=== PATIENT | female | born 1970 | race Caucasian/White ===

== ENCOUNTER 2018-11-06 06:52 | Emergency (ER) | payer MEDICAID, OTHER ==
[~2018-11-06] VITALS: Ht 172.7 cm; Wt 95.0 kg
[~2018-11-06 06:52] MED LIST: NO HOME MEDS
[2018-11-06 06:58] VITALS: BP 118/77
[2018-11-06] MEDS ORDERED: TRAM50TA2 PO (08:17)
== END 2018-11-06 08:42 | disposition home or self-care (01) ==
LOC: ER 06:53
DX: S86.011A Strain of right Achilles tendon, initial encounter (principal); M19.90 Unspecified osteoarthritis, unspecified site; Z98.890 Other specified postprocedural states; Z79.899 Other long term (current) drug therapy; X50.1XXA Overexertion from prolonged static or awkward postures, initial encounter; Y93.89 Activity, other specified; Y92.89 Other specified places as the place of occurrence of the external cause; Y99.8 Other external cause status
CPT/HCPCS: 99284

== ENCOUNTER 2019-08-10 11:21 | Emergency (ER) | payer MEDICAID, OTHER ==
[~2019-08-10] VITALS: Ht 170.2 cm; Wt 94.0 kg
[2019-08-10] MEDS ORDERED: cyclobenzaprine 10mg tablet PO ONE (13:35)
[2019-08-10] MEDS ORDERED: HYDROcodone/acetaminophen 10/325mg tab PO ONE (13:35)
[2019-08-10] MEDS ORDERED: IBUP-1984 PO (14:38)
[2019-08-10] MEDS ORDERED: HYDR-4353 PO (14:38)
[2019-08-10 15:31] VITALS: BP 153/96
== END 2019-08-10 15:33 | disposition home or self-care (01) ==
LOC: ER 11:21
DX: M54.42 Lumbago with sciatica, left side (principal); M19.90 Unspecified osteoarthritis, unspecified site; G89.29 Other chronic pain; Z90.89 Acquired absence of other organs; Z98.890 Other specified postprocedural states; Z79.899 Other long term (current) drug therapy
CPT/HCPCS: 99284

== ENCOUNTER 2023-04-26 15:35 | Emergency (ER) | payer MEDICAID, OTHER ==
[~2023-04-26] VITALS: Ht 175.3 cm; Wt 85.0 kg
[2023-04-26 16:04] VITALS: BP 162/81; PULSE 99; RESP 19; TEMP 98.7; O2SAT 99
[2023-04-26] MEDS ORDERED: ketorolac tromethamine 15mg/ml inj. IM ONE (16:45)
[2023-04-26] MEDS ORDERED: CYCL-1 PO (16:48)
[2023-04-26] MEDS ORDERED: LIDO700A32 TOP (16:48)
[2023-04-26] MEDS ORDERED: PRED20TA PO (16:48)
[2023-04-26] MEDS: dexamethasone sod phosphate 10mg/ml inj IM STA (17:23)
[2023-04-26] MEDS: HYDROcodone/acetaminophen 5mg/325mg tablet PO ONE (17:23)
[2023-04-26] MEDS: ketorolac trometh. 30mg/ml inj. IM ONE (17:23)
[2023-04-26] MEDS: cyclobenzaprine 10mg tablet PO ONE (17:23)
== END 2023-04-26 17:50 | disposition home or self-care (01) ==
LOC: ER 15:36
DX: G89.29 Other chronic pain (principal); M54.50 Low back pain, unspecified; M19.90 Unspecified osteoarthritis, unspecified site; Z98.890 Other specified postprocedural states
CPT/HCPCS: 96372; 99284; J1100; J1885

== ENCOUNTER 2024-07-27 17:26 | Emergency (ER) | payer MEDICAID, OTHER ==
[~2024-07-27] VITALS: Ht 170.2 cm; Wt 92.7 kg
[~2024-07-27 17:26] MED LIST changes: +CYCL-1 PO; +LIDO-52 TOP
[2024-07-27 17:35] VITALS: TEMP 98.3
--- NOTE | 2024-07-27 17:42 | ELECTROCARDIOGRAPH REPORT ---
[facility] Test Date: 2024-07-27 Test Time: 17:32:12 Pat Name: DIMITRIS CELESTIN Department: EMERGENCY ROOM Room: Gender: F Concrete Finishing Machine Operator: : [id number] Requested By: ALEJANDRINA WILLIAMSON Order Number: [id number] Reading MD: Dr. Alejandrina Williamson Measurements Intervals [place] Rate: 83 P: 81 WV: 143 QRS: 60 QRSD: 84 T: 81 QT: 347 QTc: 408 Interpretive Statements Sinus rhythm Electronically Signed On 07-27-2024 19:37:[address] Alejandrina Williamson Please click the below link to view image of tracing.
[2024-07-27 18:05] LABS: BASOPHILS % (AUTO) 0.4 % (0-1); EOSINOPHILS # (AUTO) 0.4 X10'3 (0-0.9); EOSINOPHILS % (AUTO) 4.1 % (0-6); HEMATOCRIT 39.4 % (35.0-45.0); HEMOGLOBIN 13.3 g/dl (12.0-16.0); LYMPHOCYTES # (AUTO) 4.9 X10'3 (1.1-4.8); LYMPHOCYTES % (AUTO) 45.5 % (21-51); MEAN CORPUSCULAR HEMOGLOBIN 29.3 PG (27.0-31.0); MEAN CORPUSCULAR HGB CONC 33.8 g/dL (33.0-36.5); MEAN CORPUSCULAR VOLUME 86.9 FL (78-98); MEAN PLATELET VOLUME 7.5 FL (7.4-10.4); MONOCYTES # (AUTO) 0.6 X10'3 (0-0.9); NEUTROPHILS # (AUTO) 4.7 X10'3 (1.8-7.7); PLATELET COUNT 433 X10'3 (140-440); RED BLOOD COUNT 4.53 X10'6 (4.20-5.60); RED CELL DISTRIBUTION WIDTH 13.8 % (11.5-14.5); WHITE BLOOD COUNT 10.7 X10'3 (4.5-11.0)
[2024-07-27 18:27] LABS: ALBUMIN 3.7 G/DL (3.4-5.0); ANION GAP 6 (8-16); BLOOD UREA NITROGEN 23 MG/DL (7-18); BUN/CREATININE RATIO 26.4 (10.0-20.0); CHLORIDE 107 MMOL/L (99-107); CREATININE 0.87 MG/DL (0.40-0.90); GLUCOSE 114 MG/DL (70-104); POTASSIUM 4.8 MMOL/L (3.5-5.1); PRO BRAIN NATRIURETIC PEPTIDE 30 PG/ML (0-125); SODIUM 145 MMOL/L (135-145); TOTAL CARBON DIOXIDE 32.4 MMOL/L (24-32); eCRCL 70 ML/MIN; eGFR 67 ML/MIN
--- NOTE | 2024-07-27 18:53 | RADIOLOGY REPORT ---
DI CHEST,SINGLE VIEW, HISTORY: CP COMPARISON: None None TECHNICAL DATA: 1 view of the chest was obtained. FINDINGS: Lines and tubes: None Cardiomediastinal silhouette: normal Pulmonary vasculature: normal Lung expansion: normal Lung airspace: normal Lung interstitium: normal Pleura: normal Pneumothorax: no Bones: Unremarkable Other: no IMPRESSION: No acute intrathoracic abnormality.
--- NOTE | 2024-07-27 21:37 | Physician Documentation ---
History of Present Illness ~ Chief Complaint: Shortness of Breath Stated Complaint: CP Time Seen by MD: 20:42 Primary Medical Doctor: ANAID Mode of Arrival: Ambulatory HPI THIS IS A 54-YEAR-OLD FEMALE WHO RECENTLY QUIT SMOKING, COMES IN FOR EVALUATION OF LEFT HIP PAIN THAT MAKES HER WORRIED THAT SHE HAS A BLOOD CLOT, AND THAT MAKES HER WORRIED THAT SHE "MIGHT HAVE A STROKE OR HEART ATTACK". With respect to left-sided hip pain it is starting at her greater trochanter and wraps around the front of her leg. No particular palliating factors, aggravated by range of motion. Able to ambulate without difficulty. Attempted to treat it with Tylenol at home and cold compresses. She states the shortness a breath with a chief complaint because she felt anxious over the suspected heart attack and/or stroke. No particular palliating or aggravating factors, currently symptom free. Patient denies any recent travel by car or by plane for more than 4 hours, recent immobilization for greater than 3 days, any recent surgery, any history of hemoptysis, any personal history of cancer, he denies any prior history of pulmonary embolism or DVT. They also deny any hormonal supplementation. Denies any other symptoms. Medication Reconciliation Allergies: Coded Allergies: No Known Allergies (Unverified , 07/27/24) Scheduled Cyclobenzaprine* (Cyclobenzaprine*), 1 TAB PO HS Lidocaine (Lidoderm), 1 PATCH TOP DAILY Miscellaneous Medications Home Med List (No Home Medications), (Reported) Past Medical History Past Medical History: Arthritis, Chronic Back Pain Past Surgical History: , orthopedic surgeries, tonsillectomy Alcohol Use: None Drug Use: none Lives In: Home Review of Systems ROS 10 point review of systems was performed and unless noted above in HPI is negative for acute process/complaint. Physical Exam Vital Signs: Temperature: 98.3, Source: Temporal, Heart Rate: 77, Respiratory Rate: 16, BP: 156/85, Pulse Oximetry: 98, Weight: 92.730 Oxygen Flow Rate: 0 Physical Exam GENERAL: Awake, alert, oriented, GCS 15, no apparent distress, non-toxic appearing, answers questions, follows commands appropriately. HEENT: Atraumatic, normocephalic, pupils equal, extraocular muscles intact, sclerae anicteric, mucus membranes moist, oropharynx is clear, no stridor. NECK: supple, full active range of motion, trachea midline, no thyromegaly, no lymphadenopathy, no JVD. CARDIOVASCULAR: regular rate/rhythm, no murmurs/gallops/rubs, Pulses are 2+ in all extremities and symmetric. Capillary refill less than 2 seconds. PULMONARY: Nonlabored, good air movement ,no respiratory distress, speaking in full sentences, clear to auscultation bilaterally, no wheezing, no ronchi, no rales, no accessory muscle use. GASTROINTESTINAL: Soft, non-tender, non-distended, normal active bowel sounds, no organomegaly, no pulsatile masses, no CVA tenderness. NEUROLOGIC: Lucid with normal mental status. Normal facial symmetry. Moves all extremities symmetrically and with purpose. No truncal ataxia. Speech is fluid without evidence of dysarthria or aphasia, no focal deficits appreciated. MUSCULOSKELETAL: There is full range of motion of all extremities. There is no joint pain or joint swelling or joint erythema. There is no muscle pain or tenderness or swelling. EXTREMITIES: warm, well-perfused, no cyanosis, no clubbing, no edema, no acute deformities. Skin: warm, dry, no rashes or lesions, no jaundice, no petechiae orpurpura. No ecchymosis. PSYCHIATRIC: Normal affect, normal insight, normal concentration. Focused exam: [Mild tenderness to palpation of the greater trochanter reproducing chief complaint] Progress Results/Orders Results/Orders Completed Orders - DEVENDRA GA DO D-Dimer (07/27/24 20:14) Vital Signs 07/27/24 07/27/24 07/27/24 17:35 20:26 20:28 Temp 98.3 Pulse 85 77 Resp 16 16 16 B/P (MAP) 127/75 156/85 (108) Pulse Ox 98 98 O2 Flow Rate 0 Laboratory Tests Test 07/27/24 17:50 07/27/24 19:52 White Blood Count 10.7 Red Blood Count 4.53 Hemoglobin 13.3 Hematocrit 39.4 Mean Corpuscular Volume 86.9 Mean Corpuscular Hemoglobin 29.3 Mean Corpuscular Hemoglobin Concent 33.8 Red Cell Distribution Width 13.8 Platelet Count 433 Mean Platelet Volume 7.5 Neutrophils (%) (Auto) 44.0 Lymphocytes (%) (Auto) 45.5 Monocytes (%) (Auto) 6.0 Eosinophils (%) (Auto) 4.1 Basophils (%) (Auto) 0.4 Neutrophils # (Auto) 4.7 Lymphocytes # (Auto) 4.9 H Monocytes # (Auto) 0.6 Eosinophils # (Auto) 0.4 Basophils # (Auto) 0.0 CBC Comment D-Dimer 0.40 D-Dimer Comment Sodium Level 145 Potassium Level 4.8 Chloride Level 107 Carbon Dioxide Level 32.4 H Anion Gap 6 L Blood Urea Nitrogen 23 H Creatinine 0.87 Estimated GFR/1.73 m2 67 BUN/Creatinine Ratio 26.4 H Glucose Level 114 H Calcium Level 9.0 Troponin I High Sensitivity < 4 L 4 Troponin I High Sens Percent Delta Troponin I Hi Sens Absolute Change Pro-B-Type Natriuretic Peptide 30 Albumin 3.7 Chemistry Comments Medical Decision Making Findings Facility Status: ED Holds, E process The plan was discussed with the patient, who demonstrates clear understanding of the plan and is in agreement with the plan unless otherwise noted in the chart. All questions have been answered, all concerns were addressed unless otherwise documented. I was available throughout their ED stay for frequent reassessment and questions. Differential Diagnoses (considered and possible or likely): [Left hip bursitis, arthritis s, musculoskeletal pain, less likely DVT, unlikely to be arterial occlusion based on clinical presentation. With respect to shortness a breath differential includes but not limited to COPD, CHF, ACS, less likely PE] ??Differential Diagnoses (considered and unlikely, not requiring evaluation currently): [Unlikely to represent pneumothorax.] MDM Data Please see HPI for the following: Independent Historians and external Records Review. Historian: [Patient] Independent Historians: ?[Record review, patient's mother] Medication Management: [Reviewed medication list] Social History and determinants: [Reviewed] Please see the body of the note for the following: Any independent interpretations of ECG, imaging studies. All vitals signs/haemodynamics, ordered tests were independently reviewed and interpreted by myself. Nursing triage complaint and vitals reviewed, additional nursing notes were reviewed as available and I agree unless otherwise noted or documented in contradiction in the chart Vital Signs: Independently reviewed Labs: Independently interpreted Imaging: Independently interpreted Old Medical Records: Independently reviewed, see HPI for relevant summary and information Pulse Oximetry: [97% I] interpreted as [normal on room air] by me [Teacher Counselor: [Regular Rate, Regular rhythm, no ectopy, NSR] reviewed and interpreted by me] Additionally notably showing: [Hemodynamics reviewed. The patient isn't febrile, not tachycardic, no evidence of hypotension respiratory distress. CBC is normal without evidence of leukocytosis, anemia, thrombocytopenia. Coagulation panel shows normal D-dimer decreasing suspicion for DVT or PE in this patient. Metabolic panel notable for dehydration. Do troponins are negative. BNP is normal. Chest x-ray was obtained and on my independent review normal cardiac silhouette, no focal infiltrates, grossly normal bony structures. Midline trachea. Radiology concurs] Tests considered but not ordered include: [Imaging fall her left hip and leg has been considerably offered but patient declined. As have very low suspicion for trauma] Social Determinants of Health Impact: Patient was evaluated in [facility] [place] to healthcare due to below par ratio of patient to medical providers. [] Comorbid Conditions Impacting Present Evaluation and Care/Treatment: [Lifelong smoking] Management Discussions with other Healthcare Providers: [None] Treatment and Disposition Medication Management (Given or considered): [Pain management]. See EMR for details Consideration for Hospitalization/Escalation/Deescalation of Care: Admission for observation has been considered, [however the patient is able to tolerate p.o., their symptoms are controlled, they are able to rely on oral medications, and their chief complaint/diagnosis can be managed on outpatient basis.] ?ED Course:?[No clinical deterioration. Heart score is two for age and risk factors] ?Shared decision making:?[Patient is hemodynamically stable for discharge home with follow with their primary care provider. [ ] Specific and cautious return precautions provided and discussed with full understanding. Any incidental findings were also discussed and follow up recommendations given. [] All questio ns answered. Patient/family were able to verbalize back return precautions. Patient/family agree to plan. Copies of imaging and laboratory studies were provided.] Code status:?FULL Please see the full Electronic Medical Record for full details of nursing documentation, medications list, other records of complete past medical history and conditions, vital signs, laboratory studies, and any radiologic study interpretations by radiologists. Portions of this note were completed using [employer] dictation software and as a result there may exist minor errors in spelling. I have reviewed elements of past family and social history and agree as included in note. Departure Disposition: 01 HOME / SELF CARE / HOMELESS Impression: Primary Impression: Left hip pain Additional Impression: Shortness of breath Condition: Improved Discharge Instructions: Hip Pain, Shortness of Breath, Adult Referrals: NO PRIMARY CARE PROVIDER (PCP) Prescriptions Cyclobenzaprine HCl (Cyclobenzaprine HCl) 5 Mg Tablet 1 TAB PO TID PRN PRN for muscle spasms for 10 Days, #30 TAB 0 Refills Prov: DEVENDRA GA DO 07/27/24 Naproxen (Naproxen) 500 Mg Tablet 1 TAB PO Q12H, #20 TAB Prov: DEVENDRA GA DO 07/27/24 Education Educated: Patient, Family Educated regarding: diagnosis, treatment, prognosis, need for follow up Signature Scribe Signature: No scribe Attestation: This note accurately reflects clinical decisions, work performed by myself, DO HARMEET Myers NICHOLAS M DO Jul 27, 2024 21:37
[2024-07-27] MEDS ORDERED: NAPR-56 PO (21:45)
[2024-07-27] MEDS ORDERED: CYCL-920 PO (21:45)
[2024-07-27] MEDS: ketorolac trometh 30MG/ML vial 30 MG/ML VIAL IM ONE (21:54)
[2024-07-27] MEDS ORDERED: METH4TAB81 PO (21:57)
[2024-07-27 21:59] VITALS: BP 154/86; PULSE 74; RESP 16; O2SAT 98
== END 2024-07-27 22:01 | disposition home or self-care (01) ==
LOC: ER 17:27
DX: M25.552 Pain in left hip (principal); R06.02 Shortness of breath; M19.90 Unspecified osteoarthritis, unspecified site; Z79.899 Other long term (current) drug therapy
CPT/HCPCS: 36415; 71045; 80048; 83880; 84484; 85025; 85379; 93005; 96372; 99285; J1885